=== PATIENT | female | born 1975 | race African-American/Black ===

== ENCOUNTER 2023-04-22 11:19 | Outpatient (CLI) | payer MEDICARE | END 2023-04-22 11:20 | disposition home or self-care (01) | LOC: BICRAD 11:19 | PROVIDERS: ATTEND Internal Medicine Rheumatology | DX: M25.512 Pain in left shoulder (principal); M05.79 Rheumatoid arthritis with rheumatoid factor of multiple sites without organ or systems involvement; M89.8X1 Other specified disorders of bone, shoulder ==